=== PATIENT | male | born 1970 | race Caucasian/White ===

== ENCOUNTER 2018-04-19 17:42 | Emergency (ER) | payer SELFPAY ==
[~2018-04-19] VITALS: Ht 167.6 cm; Wt 66.0 kg
[2018-04-19 22:00] VITALS: BP 118/73
== END 2018-04-20 06:41 | disposition left against medical advice (07) ==
LOC: ER 17:42
DX: R10.9 Unspecified abdominal pain (principal); R19.7 Diarrhea, unspecified; Z53.21 Procedure and treatment not carried out due to patient leaving prior to being seen by health care provider